=== PATIENT | male | born 1960 | race Caucasian/White ===

== ENCOUNTER 2018-03-18 13:36 | Emergency (ER) | payer OTHER ==
--- NOTE | 2018-03-18 15:03 | RAD REPORT ---
EXAM DESCRIPTION: Sheng Single View03/18/2018 2:24 pm CLINICAL HISTORY: sob COMPARISON: none FINDINGS: The lungs appear clear of acute infiltrate. The heart is normal size. A tracheostomy tube is in place IMPRESSION: No acute abnormalities displayed
--- NOTE | 2018-03-18 15:50 | RAD REPORT ---
EXAM DESCRIPTION: CT - Head Brain Wo Cont - 03/18/2018 3:19 pm CLINICAL HISTORY: Seizure COMPARISON: None. TECHNIQUE: Computed axial tomography of the head was obtained. IV contrast was not requested. All CT scans are performed using dose optimization technique as appropriate and may include automated exposure control or mA/KV adjustment according to patient size. FINDINGS: Bilateral craniectomies have been performed. A 25 millimeter isodense structure is present along the right frontal convexity near the site of prio r surgery. Moderate low-density areas are present within the right frontal lobe. The adjacent frontal horn of the right lateral ventricle is dilated. No extra-axial fluid collection is noted. Fluid within the sinuses/ mastoids is not seen. IMPRESSION: Bilateral craniectomies 25 millimeter isodense structure along the right frontal convexity likely is chronic. It could represent residual mass or volume averaging of normal adjacent brain parenchyma. It is recom mended that this be compared to prior exams. If unavailable a nonemergent MRI should be obtained Moderate low-density areas within the right frontal lobe have the appearance of gliosis perhaps secon day to an old bleed
[2018-03-18] MEDS ORDERED: levETIRAcetam 500 MG TAB ONE (15:52)
--- NOTE | 2018-03-18 15:55 | EDPHYS ---
Physician Documentation [facility] Name: Gianfranco Theodore Age: 57 yrs Sex: Male : 1960 Arrival Date: 03/18/2018 Time: 13:37 Bed 3 Private MD: ED Physician Carlos A Hyde HPI: 03/18 15:23 This 57 yrs old Male presents to ER via EMS with complaints of Seizure. jr8 15:23 The patient presents with a history of multiple seizures, a total of 2, that last 8 jr8 minute(s). Character of seizure(s): Loss of consciousness: the patient experienced loss of consciousness, Motor activity: generalized. Seizure onset: just prior to arrival. Context: the seizure(s) was witnessed, by the long-term staff. Current symptoms: Currently, the patient is not experiencing any symptoms, the patient feels back to baseline, no decreased level of consciousness, no confusion, no dysphasia, no headache, no paralysis, no visual changes. The patient has experienced similar episodes in the past, a few times. Patient stated that he has been off of his seizure medications for past 4 days. [place] staff stated that he had two seizures today. Patient complains of headache currently but denies any other symptoms. Patient currently A\T\O x4 . Historical: - Allergies: 13:59 Codeine; jl7 13:59 Iodine; jl7 13:59 PENICILLINS; jl7 13:59 [place]dee; jl7 13:59 Ciprofloxacin; jl7 13:59 Fentanyl; jl7 13:59 Reglan; jl7 13:59 Toradol; jl7 - Home Meds: 13:59 Ambien 5 mg Oral tab 1 tab once daily [Active]; quetiapine 50 mg oral tab [Active]; jl7 levetiracetam 100 mg/mL oral soln [Active]; levothyroxine 175 mcg tab 1 tab once daily [Active]; mirtazapine 30 mg Oral tab 1 tab once daily [Active]; omeprazole 20 mg Oral cpDR 1 cap once daily [Active]; Oxycarbazepine 150mg BID [Active]; prazosin 1 mg Oral cap [Active]; Lyrica 25 mg Oral [Active]; pyridoxine (vitamin B6) 50 mg Oral tab daily [Active]; Amiodarone 250 mg Oral [Active]; atorvastatin 40 mg oral tab 1 tab once daily [Active]; citalopram oral [Active]; Clonazepam Oral [Active]; Folic Acid Oral [Active]; gabapentin 300 mg oral cap 1 cap 3 times per day [Active]; glycopyrrolate 1 mg oral tab [Active]; - PMHx: 13:59 Seizures; Aneurysm; Depression; Hypothyroidism; Atrial Fib; V Tach; Urinary Retention- jl7 Zafar; - PSHx: 13:59 CVD; jl7 - Immunization history:: Adult Immunizations up to date. - Social history:: Smoking status: Patient/guardian denies using tobacco. - Ebola Screening: : No symptoms or risks identified at this time. ROS: 15:23 Eyes: Negative for injury, pain, redness, and discharge, ENT: Negative for injury, jr8 pain, and discharge, Neck: Negative for injury, pain, and swelling, Cardiovascular: Negative for chest pain, palpitations, and edema, Respiratory: Negative for shortness of breath, cough, wheezing, and pleuritic chest pain, Abdomen/GI: Negative for abdominal pain, nausea, vomiting, diarrhea, and constipation, Back: Negative for injury and pain, MS/Extremity: Negative for injury and deformity, Skin: Negative for injury, rash, and discoloration. 15:23 Neuro: Positive for seizure activity. Exam: 15:23 Eyes: Pupils equal round and reactive to light, extra-ocular motions intact. Lids and jr8 lashes normal. Conjunctiva and sclera are non-icteric and not injected. Cornea within normal limits. Periorbital areas with no swelling, redness, or edema. ENT: Nares patent. No nasal discharge, no septal abnormalities noted. Tympanic membranes are normal and external auditory canals are clear. Oropharynx with no redness, swelling, or masses, exudates, or evidence of obstruction, uvula midline. Mucous membranes moist. Neck: Trachea midline, no thyromegaly or masses palpated, and no cervical lymphadenopathy. Supple, full range of motion without nuchal rigidity, or vertebral point tenderness. No Meningismus. Cardiovascular: Regular rate and rhythm with a normal S1 and S2. No gallops, murmurs, or rubs. Normal PMI, no JVD. No pulse deficits. Respiratory: Lungs have equal breath sounds bilaterally, clear to auscultation and percussion. No rales, rhonchi or wheezes noted. No increased work of breathing, no retractions or nasal flaring. Trach present and without obstruction or discharge Abdomen/GI: Soft, non-tender, with normal bowel sounds. No distension or tympany. No guarding or rebound. No evidence of tenderness throughout. Back: No spinal tenderness. No costovertebral tenderness. Full range of motion. Skin: Warm, dry with normal turgor. Normal color with no rashes, no lesions, and no evidence of cellulitis. MS/ Extremity: Pulses equal, no cyanosis. Neurovascular intact. Full, normal range of motion. Neuro: Awake and alert, GCS 15, oriented to person, place, time, and situation. Cranial nerves II-XII grossly intact. Motor strength 5/5 in all extremities. Sensory grossly intact. Vital Signs: 13:59 BP 97 / 58; Pulse 75; Resp 14 S; Temp 98.7(O); Pulse Ox 100% on R/A; Weight 95.71 kg jl7 (R); Height 5 ft. 11 in. (180.34 cm) (R); Pain 8/10; 15:00 BP 99 / 59; Pulse 71; Resp 16; Pulse Ox 100% ; jl7 15:38 BP 93 / 47; Pulse 58; Resp 16; Pulse Ox 100% ; jl7 16:00 BP 95 / 47; Pulse 45; Resp 16; Pulse Ox 100% ; jl7 16:06 BP 96 / 62; Pulse 51; Resp 16; Pulse Ox 100% ; jl7 13:59 Body Mass Index 29.43 (95.71 kg, 180.34 cm) jl7 Enrico Coma Score: 14:00 Eye Response: to voice(3). Verbal Response: oriented(5). Motor Response: obeys jl7 commands(6). Total: 14. 14:15 Eye Response: spontaneous(4). Verbal Response: oriented(5). Motor Response: obeys jl7 commands(6). Total: 15. MDM: 13:38 Patient medically screened. zenaida 15:37 Data reviewed: vital signs, nurses notes, radiologic studies, CT scan. Data jr8 interpreted: Pulse oximetry: on 3L(s) per nasal canula, is 100 %. Interpretation: normal. Counseling: I had a detailed discussion with the patient and/or guardian regarding: the historical points, exam findings, and any diagnostic results supporting the discharge/admit diagnosis, radiology results, the need for outpatient follow up, a neurologist, to return to the emergency department if symptoms worsen or persist or if there are any questions or concerns that arise at home. 15:39 ED course: Patient stated that he does not want to be stuck again. Feels much better jr8 and wants to go back to [place]. Explained to patient that we cannot make sure he is fully ok without blood work. Patient understood and would come back if he were to worsen. Patient will be discharged with return precautions . 03/18 13:54 Order name: XRAY Chest (1 view); Complete Time: 15:21 03/18 13:54 Order name: EKG; Complete Time: 13:54 03/18 13:54 Order name: Cardiac monitoring; Complete Time: 14:35 03/18 13:54 Order name: EKG - Nurse/Tech; Complete Time: 14:35 [facility] 03/18 13:54 Order name: CT Head Brain wo Cont; Complete Time: 15:51 [facility] 03/18 13:54 Order name: O2 Per Protocol; Complete Time: 14:34 03/18 13:54 Order name: O2 Sat Monitoring; Complete Time: 14:34 Administered Medications: 15:56 Not Given (Physician Discretion): NS 0.9% 500 ml IV at bolus once jl7 15:56 Drug: Keppra 500 mg Route: PO; 7 16:30 Follow up: Response: No adverse reaction jl7 16:04 Drug: Trileptal 150 mg Route: PO; jl7 16:30 Follow up: Response: No adverse reaction jl7 Disposition: 03/19 14:30 Co-signature as Attending Physician, Carlos A Hyde MD I agree with the assessment and zenaida plan of care. Disposition: 03/18/18 15:54 Discharged to Home. Impression: Epilepsy and recurrent seizures. - Condition is Stable. - Discharge Instructions: Seizure, Adult. - Medication Reconciliation Form, Thank You Letter, Antibiotic Education, Prescription Opioid Use form. - Follow up: Private Physician; When: Tomorrow; Reason: Recheck today's complaints, Continuance of care, Re-evaluation by your physician. - Problem is new. - Symptoms have improved. Signatures: Dispatcher [employer] Carlos A Louis MD MD cha Roszak Linden, PA PA jr8 Maryan Rebollar RN RN jl7 Corrections: (The following items were deleted from the chart) 03/18 16: 13:54 IV Saline Lock ordered. jr8 jl7 16: 13:54 Labs collected and sent ordered. jr8 jl7 16: 13:54 Urine Dipstick-Ancillary ordered. jr8 jl7 16:20 13:54 BASIC METABOLIC PANEL+C.LAB.BRZ ordered. EDMS EDMS 16:20 13:54 CBC+H.LAB.BRZ ordered. EDMS EDMS 16:20 13:54 HEPATIC FUNCTION+C.LAB.BRZ ordered. EDMS EDMS 16:20 13:54 MAGNESIUM+C.LAB.BRZ ordered. EDMS EDMS 16:20 13:54 PROTIME (+INR)+COAG.LAB.BRZ ordered. EDMS EDMS 16:39 15:54 03/18/2018 15:54 Discharged to Home. Impression: Epilepsy and recurrent seizures. jl7 Condition is Stable. Forms are Medication Reconciliation Form, Thank You Letter, Antibiotic Education, Prescription Opioid Use. Follow up: Private Physician; When: Tomorrow; Reason: Recheck today's complaints, Continuance of care, Re-evaluation by your physician. Problem is new. Symptoms have improved. jr8
--- NOTE | 2018-03-18 15:55 | ER ---
Nurse's Notes [facility] Name: Gianfranco Theodore Age: 57 yrs Sex: Male : 1960 Arrival Date: 03/18/2018 Time: 13:37 Bed 3 Private MD: Diagnosis: Epilepsy and recurrent seizures Presentation: 03/18 13:37 Presenting complaint: EMS states: Facility reps reported he had a seizure lasting jl7 approx 8 min, postictal on arrival and had another seizure so we gave 5 mg Versed IN, seizure lasted approx 45 sec. Transition of care: patient was received from another setting of care (long-term care facility), [facility]. Onset of symptoms was March 18, 2018 at 12:50. Risk Assessment: Do you want to hurt yourself or someone else? Patient reports no desire to harm self or others. Initial Sepsis Screen: Does the patient meet any 2 criteria? No. Patient's initial sepsis screen is negative. Does the patient have a suspected source of infection? No. Patient's initial sepsis screen is negative. Care prior to arrival: Medication(s) given: 5 mg Versed IN. 13:37 Method Of Arrival: EMS: [facility] jl7 13:37 Acuity: ZAYDA 2 jl7 Triage Assessment: 14:00 General: Appears uncomfortable, Behavior is calm, cooperative, appropriate for age. jl7 Historical: - Allergies: 13:59 Codeine; jl7 13:59 Iodine; jl7 13:59 PENICILLINS; jl7 13:59 [place]; jl7 13:59 Ciprofloxacin; jl7 13:59 Fentanyl; jl7 13:59 Reglan; jl7 13:59 Toradol; jl7 - Home Meds: 13:59 Ambien 5 mg Oral tab 1 tab once daily [Active]; quetiapine 50 mg oral tab [Active]; jl7 levetiracetam 100 mg/mL oral soln [Active]; levothyroxine 175 mcg tab 1 tab once daily [Active]; mirtazapine 30 mg Oral tab 1 tab once daily [Active]; omeprazole 20 mg Oral cpDR 1 cap once daily [Active]; Oxycarbazepine 150mg BID [Active]; prazosin 1 mg Oral cap [Active]; Lyrica 25 mg Oral [Active]; pyridoxine (vitamin B6) 50 mg Oral tab daily [Active]; Amiodarone 250 mg Oral [Active]; atorvastatin 40 mg oral tab 1 tab once daily [Active]; citalopram oral [Active]; Clonazepam Oral [Active]; Folic Acid Oral [Active]; gabapentin 300 mg oral cap 1 cap 3 times per day [Active]; glycopyrrolate 1 mg oral tab [Active]; - PMHx: 13:59 Seizures; Aneurysm; Depression; Hypothyroidism; Atrial Fib; V Tach; Urinary Retention- jl7 Zafar; - PSHx: 13:59 CVD; jl7 - Immunization history:: Adult Immunizations up to date. - Social history:: Smoking status: Patient/guardian denies using tobacco. - Ebola Screening: : No symptoms or risks identified at this time. Screenin:41 Abuse screen: Denies threats or abuse. Denies injuries from another. Nutritional jl7 screening: No deficits noted. Tuberculosis screening: No symptoms or risk factors identified. Fall Risk Secondary diagnosis (15 points) seizures, Mental Status- Oriented to own ability (0 pts). Total Miranda Fall Scale indicates No Risk (0-24 pts). Assessment: 14:00 General: Appears in no apparent distress. uncomfortable, Behavior is calm, cooperative, jl7 appropriate for age. Pain: Complains of pain in right upper quadrant Pain currently is 8 out of 10 on a pain scale. Pain began 2 weeks ago. Neuro: Level of Consciousness is awake, alert, obeys commands, Oriented to person, place, time, situation. Cardiovascular: Heart tones S1 S2 present Patient's skin is warm and dry. Respiratory: Airway is patent Respiratory effort is even, unlabored, Respiratory pattern is regular, Breath sounds are clear bilaterally. GI: No signs and/or symptoms were reported involving the gastrointestinal system. : Zafar in place. EENT: No signs and/or symptoms were reported regarding the EENT system. Derm: Skin is pink, warm \\T\\ dry. Musculoskeletal: No signs and/or symptoms reported regarding the musculoskeletal system. 15:35 Reassessment: Pt back from CT and states "I feel much better. I don't want any blood jl7 work done, I'm ready to go home." Provider notified. 15:38 Reassessment: Patient and/or family updated on plan of care and expected duration. Pain jl7 level reassessed. Patient is alert, oriented x 3, equal unlabored respirations, skin warm/dry/pink. Patient states feeling better. 15:57 Reassessment: [facility] notified that the pt is ready for discharge. Facility rep jl7 reports they will call [facility] for transport. Vital Signs: 13:59 BP 97 / 58; Pulse 75; Resp 14 S; Temp 98.7(O); Pulse Ox 100% on R/A; Weight 95.71 kg jl7 (R); Height 5 ft. 11 in. (180.34 cm) (R); Pain 8/10; 15:00 BP 99 / 59; Pulse 71; Resp 16; Pulse Ox 100% ; jl7 15:38 BP 93 / 47; Pulse 58; Resp 16; Pulse Ox 100% ; jl7 16:00 BP 95 / 47; Pulse 45; Resp 16; Pulse Ox 100% ; jl7 16:06 BP 96 / 62; Pulse 51; Resp 16; Pulse Ox 100% ; jl7 13:59 Body Mass Index 29.43 (95.71 kg, 180.34 cm) jl7 Enrico Coma Score: 14:00 Eye Response: to voice(3). Verbal Response: oriented(5). Motor Response: obeys jl7 commands(6). Total: 14. 14:15 Eye Response: spontaneous(4). Verbal Response: oriented(5). Motor Response: obeys jl7 commands(6). Total: 15. ED Course: 13:37 Patient arrived in ED. jl7 13:38 Carlos A Hyde MD is Attending Physician. [facility] 13:41 Triage completed. jl7 13:53 Linden Black PA is PHCP. jr8 13:59 Arm band placed on right wrist. jl7 14:00 Missed attempt(s): 24 gauge in right upper arm. Bleeding controlled, band aid applied, aa5 catheter tip intact. 14:03 Radiology exam delayed due to Sherly RN to call down when patient is ready. vm2 14:05 Missed attempt(s): 24 gauge in right wrist. Bleeding controlled, band aid applied, aa5 catheter tip intact. 14:22 XRAY Chest (1 view) In Process Unspecified. EDMS 14:34 Maryan Rebollar, VENUS is Primary Nurse. jl7 15:00 Missed attempt(s): 18 gauge in right antecubital area. Bleeding controlled, band aid jl7 applied, catheter tip intact. 15:[address] via stretcher. nj 15:18 CT completed. Patient tolerated procedure well. Patient moved back from CT. nj 15:18 CT Head Brain wo Cont In Process Unspecified. EDMS 15:41 Patient has correct armband on for positive identification. Placed in gown. Bed in low jl7 position. Call light in reach. Side rails up X2. Seizure precautions initiated. color television console monitor on. Pulse ox on. NIBP on. 15:41 No provider procedures requiring assistance completed. jl7 16:37 Patient did not have IV access during this emergency room visit. jl7 Administered Medications: 15:56 Not Given (Physician Discretion): NS 0.9% 500 ml IV at bolus once jl7 15:56 Drug: Keppra 500 mg Route: PO; jl7 16:30 Follow up: Response: No adverse reaction jl7 16:04 Drug: Trileptal 150 mg Route: PO; jl7 16:30 Follow up: Response: No adverse reaction jl7 Outcome: 15:54 Discharge ordered by . jimmy 16:37 Discharged to senior care. jl7 16:37 Condition: stable 16:37 Discharge instructions given to patient, senior care, Instructed on discharge instructions, follow up and referral plans. Demonstrated understanding of instructions, follow-up care. 16:39 Patient left the ED. jl7 Signatures: Dispatcher [employer] EDMS Carlos A Hyde MD MD cha Calderon, Audri, RN RN [email or web address] Linden Black PA PA 8 Britton Damon Jahala RN RN jl7 Ana Staton [facility]
[2018-03-18] MEDS ORDERED: OXcarbazepine 150 MG TAB PO SCH (16:00)
--- NOTE | 2018-03-19 07:34 | EKG ---
Test Date: 2018-03-18 Test Time: 14:25:25 Trace Clerk: [facility] MEASUREMENT RESULTS: Intervals: Rate: 58 SD: 190 QRSD: 82 QT: 448 QTc: 439 [place]: P: 47 SD: 190 QRS: -4 T: 19 INTERPRETIVE STATEMENTS: Sinus bradycardia Low voltage QRS Borderline ECG No previous ECG available for comparison Electronically Signed On 03-19-18 07:33:20 CDT by Cortes Brown
== END 2018-03-18 16:39 | disposition home or self-care (01) ==
LOC: ER 13:36
DX: G40.802 Other epilepsy, not intractable, without status epilepticus (principal); E03.9 Hypothyroidism, unspecified; Z88.6 Allergy status to analgesic agent; Z88.1 Allergy status to other antibiotic agents; Z88.3 Allergy status to other anti-infective agents; Z88.0 Allergy status to penicillin; Z88.8 Allergy status to other drugs, medicaments and biological substances
CPT/HCPCS: 70450; 71045; 93005; 99285